=== PATIENT | male | born 1975 | race Hispanic/Latino ===

== ENCOUNTER → 2020-03-12 | Day surgery (SDC) | payer BC, OTHER ==
[~2020-03-12] MED LIST: ACETAMINOPHEN 1000 MG/100 ML 100 ML IV ONE; BUPIVACAINE HCL 0.5% INJ 30 ML VIAL INJ ONE; CEFAZOLIN SOD 1 GM/NS 50ML 100 ML IV ONE; DEXAMETHASONE 4 MG TAB ONE; FENTANYL CITRATE/PF 100MCG/2 ML INJ ONE; MIDAZOLAM HCL 2 MG/2 ML VIAL ONE; NAPROXEN250 MG PO; NEOSTIGMINE 1 MG/ML 10ML VIAL ONE; ONDANSETRON HCL INJ 2MG/ML 2ML 2 MG/ML VIAL ONE; SEVOFLURANE INHAL SOLN 250 ML PEN BTL ONE
[2020-03-12 12:15] VITALS: BP 111/80
== END | disposition home or self-care (01) ==
LOC: OR 08:28 → EDSEX 14:30
PROVIDERS: ATTEND Podiatrist Foot & Ankle Surgery
DX: M20.42 Other hammer toe(s) (acquired), left foot (principal); M77.52 Other enthesopathy of left foot and ankle; M54.2 Cervicalgia; K21.9 Gastro-esophageal reflux disease without esophagitis; Z01.810 Encounter for preprocedural cardiovascular examination; Z01.812 Encounter for preprocedural laboratory examination; Z11.59 Encounter for screening for other viral diseases
CPT/HCPCS: 28285; 93005; J0131; J0690; J2250; J2405; J2710; J3010; J8540; U0002; 76000; C1713